=== PATIENT | female | born 1965 | race African-American/Black ===

== ENCOUNTER 2019-05-20 17:16 | Inpatient (IN) | payer OTHER ==
[2019-05-20] MEDS: ONDANSETRON 4 MG INJ IV (17:39)
[2019-05-20] MEDS: SOD CHLORIDE 0.9% 500 ML IV (17:39)
[2019-05-20] MEDS: morphine 4 MG/ML VIAL IV (17:39)
[2019-05-20 17:47] LABS: ADD MAN DIFF? NO
[2019-05-20 17:50] LABS: BASOPHIL # 0.1 10^3/ul (0.0-0.1); BASOPHILS % 0.6 % (0.0-2.0); EOSINOPHILS # 0.2 10^3/ul (0.0-0.5); EOSINOPHILS % 1.5 % (0.0-7.0); HEMATOCRIT 42.5 % (37.0-47.0); HEMOGLOBIN 13.8 g/dl (12.0-16.0); LYMPHOCYTES # 3.5 10^3/ul (0.8-2.9); LYMPHOCYTES % 31.2 % (15.0-51.0); MEAN CORPUSCULAR HEMOGLOBIN 28.2 pg (29.0-33.0); MEAN CORPUSCULAR HGB CONC 32.5 g/dl (32.0-37.0); MEAN CORPUSCULAR VOLUME 86.9 fl (82.0-101.0); MEAN PLATELET VOLUME 10.3 fl (7.4-10.4); MONOCYTE # 0.7 10^3/ul (0.3-0.9); MONOCYTES % 5.9 % (0.0-11.0); NEUTROPHIL # 6.8 10^3/ul (1.6-7.5); NEUTROPHILS % 60.4 % (39.0-77.0); PLATELET COUNT 337 10^3/UL (140-415); RED BLOOD COUNT 4.89 10^6/ul (4.20-5.40); RED CELL DISTRIBUTION WIDTH 14.5 % (11.5-14.5)
[2019-05-20 17:50] LABS: WHITE BLOOD COUNT 11.3 10^3/ul (4.8-10.8)
[2019-05-20 18:09] LABS: INR 0.89; PROTIME 12.1 Sec (11.9-14.9); PT RATIO 0.9
[2019-05-20 18:10] LABS: PARTIAL THROMBOPLASTIN TIME 27.2 Sec (23.0-35.0)
[2019-05-20 18:15] LABS: ANION GAP 14 (5-13); BLOOD UREA NITROGEN 13 mg/dl (7-20); CALCIUM 10.5 mg/dl (8.4-10.2); CARBON DIOXIDE 23 mmol/L (21-31); CHLORIDE 105 mmol/L (97-110); CREATININE 0.72 mg/dl (0.44-1.00); Estimated GFR > 60 mL/min (>60); GLUCOSE 124 mg/dl (70-220); POTASSIUM 3.9 mmol/L (3.5-5.1); SODIUM 142 mmol/L (135-144)
[2019-05-20] MEDS: HYDROmorphONE 2 MG/ML SYG IV (18:28)
[2019-05-20] MEDS ORDERED: NACL 0.9% 3 ML SYG IV (19:30)
[2019-05-20] MEDS ORDERED: BISACODYL 10 MG SUPP PR (19:30)
[2019-05-20] MEDS ORDERED: ONDANSETRON 4 MG INJ IV (19:30)
[2019-05-20] MEDS ORDERED: hydrALAzine 20 MG INJ IV (19:30)
[2019-05-20] MEDS: KETOROLAC 15 MG INJ IV (19:55)
[2019-05-20] MEDS: HYDROCODONE/APAP (5/325) TAB PO (22:24)
[2019-05-20] MEDS: NICOTINE (21 MG/24 HR) PATCH TRANSDERM (22:30)
[2019-05-20] MEDS: morphine 2 MG INJ IV (23:24)
[2019-05-21] MEDS: HYDROmorphONE 1 MG/ML SYG IV ×6 (03:41→23:05)
[2019-05-21 05:10] LABS: ADD MAN DIFF? NO
[2019-05-21 05:23] LABS: BASOPHIL # 0.1 10^3/ul (0.0-0.1); BASOPHILS % 0.5 % (0.0-2.0); EOSINOPHILS # 0.2 10^3/ul (0.0-0.5); EOSINOPHILS % 1.4 % (0.0-7.0); HEMATOCRIT 38.2 % (37.0-47.0); HEMOGLOBIN 12.4 g/dl (12.0-16.0); LYMPHOCYTES # 2.7 10^3/ul (0.8-2.9); LYMPHOCYTES % 24.5 % (15.0-51.0); MEAN CORPUSCULAR HEMOGLOBIN 28.7 pg (29.0-33.0); MEAN CORPUSCULAR HGB CONC 32.5 g/dl (32.0-37.0); MEAN CORPUSCULAR VOLUME 88.4 fl (82.0-101.0); MEAN PLATELET VOLUME 10.3 fl (7.4-10.4); MONOCYTE # 0.9 10^3/ul (0.3-0.9); MONOCYTES % 7.9 % (0.0-11.0); NEUTROPHIL # 7.2 10^3/ul (1.6-7.5); NEUTROPHILS % 65.3 % (39.0-77.0); PLATELET COUNT 280 10^3/UL (140-415); RED BLOOD COUNT 4.32 10^6/ul (4.20-5.40); RED CELL DISTRIBUTION WIDTH 14.6 % (11.5-14.5)
[2019-05-21 05:53] LABS: ALANINE AMINOTRANSFERASE 21 IU/L (13-69); ALBUMIN 4.1 g/dl (3.3-4.9); ALBUMIN/GLOBULIN RATIO 1.41; ALKALINE PHOSPHATASE 72 IU/L (42-121); ANION GAP 10 (5-13); ASPARTATE AMINO TRANSFERASE 22 IU/L (15-46); BILIRUBIN,INDIRECT 0.4 mg/dl (0-1.1); BILIRUBIN,TOTAL 0.4 mg/dl (0.2-1.3); BLOOD UREA NITROGEN 11 mg/dl (7-20); CALCIUM 9.5 mg/dl (8.4-10.2); CARBON DIOXIDE 27 mmol/L (21-31); CHLORIDE 107 mmol/L (97-110); CHOL/HDL RATIO 4.2 RATIO; CHOLESTEROL 274 mg/dl (100-200); CREATININE 0.54 mg/dl (0.44-1.00); Estimated GFR > 60 mL/min (>60); GLUCOSE 111 mg/dl (70-220); HDL CHOLESTEROL 64 mg/dl (37-92); LDL CHOLESTEROL,CALCULATED 174 mg/dl; MAGNESIUM 1.9 mg/dl (1.7-2.5); POTASSIUM 3.9 mmol/L (3.5-5.1); SODIUM 144 mmol/L (135-144); TRIGLYCERIDES 182 mg/dl (0-149)
[2019-05-21 06:13] LABS: HEMOGLOBIN A1C 5.5 % (0-5.9)
[2019-05-21] MEDS: HYDROCODONE/APAP (5/325) TAB PO (08:40)
[2019-05-21] MEDS: NICOTINE (21 MG/24 HR) PATCH TRANSDERM (08:40)
[2019-05-21] MEDS ORDERED: hydrALAzine 20 MG INJ IV (12:00)
[2019-05-21] MEDS: AMLODIPINE 5 MG TAB PO (12:01)
[2019-05-21] MEDS: ENOXAPARIN 40 MG/0.4 ML SYG SC (12:01)
[2019-05-21] MEDS: OXYCODONE/ACETAMINOPHEN (5/325) TAB PO ×2 (12:01→15:53)
[2019-05-21 12:06] LABS: FREE T4 (FREE THYROXINE) 1.18 ng/dl (0.64-1.79)
[2019-05-21] MEDS: ATORVASTATIN 10 MG TAB PO (20:11)
[2019-05-21] MEDS: traZODone 50 MG TAB PO (20:11)
[2019-05-21] MEDS: OXYCODONE/ACETAMINOPHEN (10/325) TAB PO (20:11)
[2019-05-22] MEDS: OXYCODONE/ACETAMINOPHEN (10/325) TAB PO ×4 (01:50→20:49)
[2019-05-22 05:18] LABS: ADD MAN DIFF? NO
[2019-05-22] MEDS: HYDROmorphONE 1 MG/ML SYG IV ×3 (05:19→18:45)
[2019-05-22 05:20] LABS: WHITE BLOOD COUNT 10.6 10^3/ul (4.8-10.8)
[2019-05-22 05:20] LABS: BASOPHILS % 0.4 % (0.0-2.0); EOSINOPHILS # 0.1 10^3/ul (0.0-0.5); EOSINOPHILS % 1.3 % (0.0-7.0); HEMATOCRIT 38.7 % (37.0-47.0); HEMOGLOBIN 12.4 g/dl (12.0-16.0); LYMPHOCYTES # 1.5 10^3/ul (0.8-2.9); LYMPHOCYTES % 13.8 % (15.0-51.0); MEAN CORPUSCULAR HEMOGLOBIN 28.2 pg (29.0-33.0); MEAN PLATELET VOLUME 10.4 fl (7.4-10.4); MONOCYTE # 0.9 10^3/ul (0.3-0.9); MONOCYTES % 8.2 % (0.0-11.0); NEUTROPHIL # 8.1 10^3/ul (1.6-7.5); PLATELET COUNT 261 10^3/UL (140-415); RED CELL DISTRIBUTION WIDTH 14.4 % (11.5-14.5)
[2019-05-22 05:35] LABS: ANION GAP 8 (5-13); BLOOD UREA NITROGEN 7 mg/dl (7-20); CALCIUM 9.4 mg/dl (8.4-10.2); CARBON DIOXIDE 29 mmol/L (21-31); CHLORIDE 102 mmol/L (97-110); CREATININE 0.47 mg/dl (0.44-1.00); Estimated GFR > 60 mL/min (>60); GLUCOSE 129 mg/dl (70-220); SODIUM 139 mmol/L (135-144)
[2019-05-22 06:05] LABS: POTASSIUM 3.7 mmol/L (3.5-5.1)
[2019-05-22] MEDS: AMLODIPINE 5 MG TAB PO (09:00)
[2019-05-22] MEDS: NICOTINE (21 MG/24 HR) PATCH TRANSDERM (09:45)
[2019-05-22] MEDS: ENOXAPARIN 40 MG/0.4 ML SYG SC (12:30)
[2019-05-22] MEDS: ATORVASTATIN 10 MG TAB PO (20:49)
[2019-05-23] MEDS: SOD CHLORIDE 0.9% 1,000 ML IV ×2 (00:35→21:18)
[2019-05-23] MEDS: HYDROmorphONE 1 MG/ML SYG IV ×4 (00:36→11:55)
[2019-05-23 05:18] LABS: ADD MAN DIFF? NO
[2019-05-23 05:21] LABS: BASOPHILS % 0.5 % (0.0-2.0); EOSINOPHILS # 0.2 10^3/ul (0.0-0.5); EOSINOPHILS % 2.1 % (0.0-7.0); HEMATOCRIT 36.4 % (37.0-47.0); HEMOGLOBIN 11.8 g/dl (12.0-16.0); LYMPHOCYTES # 1.8 10^3/ul (0.8-2.9); LYMPHOCYTES % 22.2 % (15.0-51.0); MEAN CORPUSCULAR HGB CONC 32.4 g/dl (32.0-37.0); MEAN CORPUSCULAR VOLUME 86.5 fl (82.0-101.0); MEAN PLATELET VOLUME 10.3 fl (7.4-10.4); MONOCYTE # 0.6 10^3/ul (0.3-0.9); MONOCYTES % 7.1 % (0.0-11.0); NEUTROPHIL # 5.5 10^3/ul (1.6-7.5); NEUTROPHILS % 67.7 % (39.0-77.0); PLATELET COUNT 252 10^3/UL (140-415); RED BLOOD COUNT 4.21 10^6/ul (4.20-5.40); RED CELL DISTRIBUTION WIDTH 14.1 % (11.5-14.5)
[2019-05-23 05:21] LABS: WHITE BLOOD COUNT 8.2 10^3/ul (4.8-10.8)
[2019-05-23 05:44] LABS: ANION GAP 11 (5-13); BLOOD UREA NITROGEN 8 mg/dl (7-20); CALCIUM 9.5 mg/dl (8.4-10.2); CARBON DIOXIDE 30 mmol/L (21-31); CHLORIDE 101 mmol/L (97-110); CREATININE 0.51 mg/dl (0.44-1.00); Estimated GFR > 60 mL/min (>60); GLUCOSE 114 mg/dl (70-220); POTASSIUM 3.5 mmol/L (3.5-5.1); SODIUM 142 mmol/L (135-144)
[2019-05-23] MEDS: ENOXAPARIN 40 MG/0.4 ML SYG SC (07:43)
[2019-05-23] MEDS: AMLODIPINE 5 MG TAB PO (08:24)
[2019-05-23] MEDS: NICOTINE (21 MG/24 HR) PATCH TRANSDERM (08:24)
[2019-05-23] MEDS: POLYMYXIN/BACITRACIN 1L IRRIG (15:08)
[2019-05-23] MEDS ORDERED: SUCCINYLCHOLINE CHLORIDE 100 MG/5 ML SYG IV (15:29)
[2019-05-23] MEDS ORDERED: ROCURONIUM 50 MG INJ (15:29)
[2019-05-23] MEDS ORDERED: PROPOFOL 20 ML (15:29)
[2019-05-23] MEDS ORDERED: CEFAZOLIN 1 GM INJ (15:29)
[2019-05-23] MEDS ORDERED: MIDAZOLAM 1 MG/ML 2 ML INJ (15:30)
[2019-05-23] MEDS ORDERED: ONDANSETRON 4 MG INJ (15:30)
[2019-05-23] MEDS ORDERED: HYDROmorphONE 1 MG/5 ML IV SYRINGE IV (17:00)
[2019-05-23] MEDS ORDERED: FENTAnyl 50 MCG/ML VIAL IV (17:00)
[2019-05-23] MEDS ORDERED: FENTAnyl 50 MCG/ML VIAL (19:25)
[2019-05-23] MEDS ORDERED: LABETALOL HCL 20MG INJ (19:31)
[2019-05-23] MEDS: ONDANSETRON 4 MG INJ IV (20:22)
[2019-05-23] MEDS: HYDROmorphONE 1 MG/5 ML IV SYRINGE IV ×2 (20:23→20:43)
[2019-05-23] MEDS: ATORVASTATIN 10 MG TAB PO (21:00)
[2019-05-23 21:32] LABS: ADD MAN DIFF? NO
[2019-05-23 21:41] LABS: BASOPHIL # 0.1 10^3/ul (0.0-0.1); BASOPHILS % 0.4 % (0.0-2.0); EOSINOPHILS % 0.1 % (0.0-7.0); HEMATOCRIT 36.1 % (37.0-47.0); HEMOGLOBIN 11.6 g/dl (12.0-16.0); LYMPHOCYTES # 0.8 10^3/ul (0.8-2.9); LYMPHOCYTES % 5.5 % (15.0-51.0); MEAN CORPUSCULAR HEMOGLOBIN 28.4 pg (29.0-33.0); MEAN CORPUSCULAR HGB CONC 32.1 g/dl (32.0-37.0); MEAN CORPUSCULAR VOLUME 88.3 fl (82.0-101.0); MEAN PLATELET VOLUME 10.3 fl (7.4-10.4); MONOCYTE # 0.7 10^3/ul (0.3-0.9); MONOCYTES % 4.5 % (0.0-11.0); NEUTROPHIL # 13.5 10^3/ul (1.6-7.5); PLATELET COUNT 252 10^3/UL (140-415); RED BLOOD COUNT 4.09 10^6/ul (4.20-5.40); RED CELL DISTRIBUTION WIDTH 13.9 % (11.5-14.5)
[2019-05-23 21:41] LABS: WHITE BLOOD COUNT 15.2 10^3/ul (4.8-10.8)
[2019-05-23 21:56] LABS: ANION GAP 11 (5-13); BLOOD UREA NITROGEN 8 mg/dl (7-20); CALCIUM 9.1 mg/dl (8.4-10.2); CARBON DIOXIDE 27 mmol/L (21-31); CHLORIDE 103 mmol/L (97-110); CREATININE 0.51 mg/dl (0.44-1.00); Estimated GFR > 60 mL/min (>60); GLUCOSE 176 mg/dl (70-220); POTASSIUM 3.7 mmol/L (3.5-5.1); SODIUM 141 mmol/L (135-144)
[2019-05-23] MEDS ORDERED: CEFAZOLIN 2 GM/50 ML (PMX) 50 ML IVPB (22:00)
[2019-05-23] MEDS: morphine 2 MG INJ IV (23:20)
[2019-05-23] MEDS: CEFAZOLIN 2 GM/50 ML (PMX) 50 ML IVPB (23:51)
[2019-05-24] MEDS: oxyCODONE 5 MG TAB PO ×5 (02:17→18:06)
[2019-05-24] MEDS: morphine 2 MG INJ IV ×4 (04:58→20:16)
[2019-05-24 05:15] LABS: ADD MAN DIFF? NO
[2019-05-24 05:23] LABS: BASOPHILS % 0.2 % (0.0-2.0); EOSINOPHILS % 0.1 % (0.0-7.0); HEMATOCRIT 33.3 % (37.0-47.0); HEMOGLOBIN 10.8 g/dl (12.0-16.0); LYMPHOCYTES # 0.8 10^3/ul (0.8-2.9); LYMPHOCYTES % 8.2 % (15.0-51.0); MEAN CORPUSCULAR HEMOGLOBIN 28.5 pg (29.0-33.0); MEAN CORPUSCULAR HGB CONC 32.4 g/dl (32.0-37.0); MEAN CORPUSCULAR VOLUME 87.9 fl (82.0-101.0); MEAN PLATELET VOLUME 10.3 fl (7.4-10.4); MONOCYTE # 0.8 10^3/ul (0.3-0.9); MONOCYTES % 8.1 % (0.0-11.0); NEUTROPHILS % 83.1 % (39.0-77.0); PLATELET COUNT 247 10^3/UL (140-415); RED BLOOD COUNT 3.79 10^6/ul (4.20-5.40); RED CELL DISTRIBUTION WIDTH 13.8 % (11.5-14.5)
[2019-05-24 05:23] LABS: WHITE BLOOD COUNT 9.6 10^3/ul (4.8-10.8)
[2019-05-24 05:37] LABS: ANION GAP 8 (5-13); BLOOD UREA NITROGEN 7 mg/dl (7-20); CALCIUM 8.8 mg/dl (8.4-10.2); CARBON DIOXIDE 26 mmol/L (21-31); CHLORIDE 105 mmol/L (97-110); CREATININE 0.46 mg/dl (0.44-1.00); Estimated GFR > 60 mL/min (>60); GLUCOSE 131 mg/dl (70-220); POTASSIUM 3.7 mmol/L (3.5-5.1); SODIUM 139 mmol/L (135-144)
[2019-05-24] MEDS: CEFAZOLIN 2 GM/50 ML (PMX) 50 ML IVPB ×2 (06:50→14:29)
[2019-05-24] MEDS: NICOTINE (21 MG/24 HR) PATCH TRANSDERM (09:12)
[2019-05-24] MEDS: AMLODIPINE 5 MG TAB PO (09:13)
[2019-05-24] MEDS: ENOXAPARIN 40 MG/0.4 ML SYG SC (09:14)
[2019-05-24] MEDS: POLYETHYLENE GLYCOL 17 GM PACKET PO (19:14)
[2019-05-24] MEDS: ATORVASTATIN 10 MG TAB PO (20:16)
[2019-05-24] MEDS: ACETAMINOPHEN 325 MG TAB PO (22:00)
[2019-05-24] MEDS: OXYCODONE/ACETAMINOPHEN (10/325) TAB PO (23:05)
[2019-05-25] MEDS ORDERED: VANCOMYCIN IV PER PHARMACY XX
[2019-05-25 00:09] LABS: LACTIC ACID 0.7 mmol/L (0.5-2.0)
[2019-05-25] MEDS: PIPER-TAZO 3.375 GM IV (PMX) 100 ML IVPB ×5 (00:21→23:26)
[2019-05-25] MEDS: VANCOMYCIN HCL 1.75 GM in SOD CHLORIDE 0.9% 500 ML IVPB (01:13)
[2019-05-25 05:21] LABS: ADD MAN DIFF? NO
[2019-05-25 05:32] LABS: BASOPHILS % 0.4 % (0.0-2.0); EOSINOPHILS # 0.2 10^3/ul (0.0-0.5); EOSINOPHILS % 1.9 % (0.0-7.0); HEMATOCRIT 30.6 % (37.0-47.0); LYMPHOCYTES # 1.8 10^3/ul (0.8-2.9); MEAN CORPUSCULAR HEMOGLOBIN 28.8 pg (29.0-33.0); MEAN CORPUSCULAR HGB CONC 32.7 g/dl (32.0-37.0); MEAN CORPUSCULAR VOLUME 88.2 fl (82.0-101.0); MEAN PLATELET VOLUME 10.4 fl (7.4-10.4); MONOCYTES % 10.1 % (0.0-11.0); NEUTROPHILS % 69.3 % (39.0-77.0); PLATELET COUNT 252 10^3/UL (140-415); RED BLOOD COUNT 3.47 10^6/ul (4.20-5.40)
[2019-05-25 05:54] LABS: LACTIC ACID 1.1 mmol/L (0.5-2.0)
[2019-05-25 06:25] LABS: ANION GAP 6 (5-13); BLOOD UREA NITROGEN 8 mg/dl (7-20); CARBON DIOXIDE 32 mmol/L (21-31); CHLORIDE 104 mmol/L (97-110); CREATININE 0.51 mg/dl (0.44-1.00); Estimated GFR > 60 mL/min (>60); GLUCOSE 113 mg/dl (70-220); POTASSIUM 3.8 mmol/L (3.5-5.1); SODIUM 142 mmol/L (135-144)
[2019-05-25] MEDS: OXYCODONE/ACETAMINOPHEN (10/325) TAB PO ×3 (08:17→16:06)
[2019-05-25] MEDS: AMLODIPINE 5 MG TAB PO (08:18)
[2019-05-25] MEDS: NICOTINE (21 MG/24 HR) PATCH TRANSDERM (08:18)
[2019-05-25] MEDS: ENOXAPARIN 40 MG/0.4 ML SYG SC (08:20)
[2019-05-25] MEDS: SOD CHLORIDE 0.9% 500 ML IV (10:57)
[2019-05-25] MEDS: HYDROmorphONE 1 MG/ML SYG IV ×2 (11:05→23:26)
[2019-05-25] MEDS: VANCOMYCIN HCL 1.25 GM in SOD CHLORIDE 0.9% 250 ML IVPB (14:24)
[2019-05-25] MEDS: oxyCODONE 5 MG TAB PO ×2 (14:35→19:18)
[2019-05-25] MEDS: ATORVASTATIN 10 MG TAB PO (20:37)
[2019-05-25] MEDS: morphine 2 MG INJ IV (22:10)
[2019-05-26] MEDS: VANCOMYCIN HCL 1.25 GM in SOD CHLORIDE 0.9% 250 ML IVPB (01:13)
[2019-05-26] MEDS: BISACODYL (EC) 5 MG TAB PO ×2 (01:14→09:00)
[2019-05-26] MEDS: OXYCODONE/ACETAMINOPHEN (10/325) TAB PO ×4 (01:14→19:52)
[2019-05-26 05:29] LABS: ADD MAN DIFF? NO
[2019-05-26 05:39] LABS: BASOPHILS % 0.3 % (0.0-2.0); EOSINOPHILS # 0.2 10^3/ul (0.0-0.5); EOSINOPHILS % 2.6 % (0.0-7.0); HEMOGLOBIN 9.2 g/dl (12.0-16.0); LYMPHOCYTES # 1.5 10^3/ul (0.8-2.9); LYMPHOCYTES % 16.2 % (15.0-51.0); MEAN CORPUSCULAR HEMOGLOBIN 28.8 pg (29.0-33.0); MEAN CORPUSCULAR HGB CONC 32.9 g/dl (32.0-37.0); MEAN CORPUSCULAR VOLUME 87.5 fl (82.0-101.0); MEAN PLATELET VOLUME 10.5 fl (7.4-10.4); MONOCYTE # 0.7 10^3/ul (0.3-0.9); NEUTROPHIL # 6.7 10^3/ul (1.6-7.5); NEUTROPHILS % 72.6 % (39.0-77.0); PLATELET COUNT 252 10^3/UL (140-415); RED CELL DISTRIBUTION WIDTH 13.6 % (11.5-14.5)
[2019-05-26 05:39] LABS: WHITE BLOOD COUNT 9.2 10^3/ul (4.8-10.8)
[2019-05-26 06:16] LABS: ANION GAP 7 (5-13); BLOOD UREA NITROGEN 6 mg/dl (7-20); CALCIUM 8.8 mg/dl (8.4-10.2); CARBON DIOXIDE 29 mmol/L (21-31); CHLORIDE 105 mmol/L (97-110); CREATININE 0.44 mg/dl (0.44-1.00); Estimated GFR > 60 mL/min (>60); GLUCOSE 116 mg/dl (70-220); POTASSIUM 3.7 mmol/L (3.5-5.1); SODIUM 141 mmol/L (135-144)
[2019-05-26] MEDS: PIPER-TAZO 3.375 GM IV (PMX) 100 ML IVPB (07:00)
[2019-05-26] MEDS: NICOTINE (21 MG/24 HR) PATCH TRANSDERM (09:20)
[2019-05-26] MEDS: AMLODIPINE 5 MG TAB PO (09:20)
[2019-05-26 09:24] LABS: ADD UMIC YES; UR AMORPHOUS CRYSTAL FEW /HPF (NONE SEEN); UR ASCORBIC ACID NEGATIVE (NEGATIVE); UR BACTERIA FEW /HPF (NONE SEEN); UR BILIRUBIN (Dip) NEGATIVE (NEGATIVE); UR BLOOD (Dip) NEGATIVE (NEGATIVE); UR CLARITY CLOUDY (CLEAR); UR COLOR AMBER (YELLOW); UR GLUCOSE (Dip) NEGATIVE (NEGATIVE); UR KETONES (Dip) 1+ mg/dL (NEGATIVE); UR LEUKOCYTE ESTERASE (Dip) NEGATIVE Leu/ul (NEGATIVE); UR NITRITE (Dip) NEGATIVE (NEGATIVE); UR RBC 8 /HPF (0-5); UR SPECIFIC GRAVITY (Dip) 1.023 (1.003-1.030); UR SQUAMOUS EPITHELIAL CELL FEW /HPF (FEW); UR TOTAL PROTEIN (Dip) NEGATIVE (NEGATIVE); UR UROBILINOGEN (Dip) 2+ mg/dL (NEGATIVE); UR WBC 4 /HPF (0-5)
[2019-05-26] MEDS: ENOXAPARIN 40 MG/0.4 ML SYG SC (09:28)
[2019-05-26] MEDS ORDERED: KETOROLAC 15 MG INJ IV (09:30)
[2019-05-26] MEDS: oxyCODONE 5 MG TAB PO ×2 (13:18→18:23)
[2019-05-26] MEDS: ATORVASTATIN 10 MG TAB PO (19:52)
[2019-05-26] MEDS: traZODone 50 MG TAB PO (22:17)
[2019-05-27] MEDS: OXYCODONE/ACETAMINOPHEN (10/325) TAB PO ×3 (08:34→21:04)
[2019-05-27] MEDS: BISACODYL (EC) 5 MG TAB PO (08:35)
[2019-05-27] MEDS: AMLODIPINE 5 MG TAB PO (08:36)
[2019-05-27] MEDS: ENOXAPARIN 40 MG/0.4 ML SYG SC (08:42)
[2019-05-27] MEDS: NICOTINE (21 MG/24 HR) PATCH TRANSDERM (08:46)
[2019-05-27] MEDS: oxyCODONE 5 MG TAB PO ×2 (11:20→23:54)
[2019-05-27] MEDS ORDERED: ALPRAZOLAM 0.5 MG TAB PO (20:00)
[2019-05-27] MEDS: FISH OIL 1,000 MG CAP PO (21:00)
[2019-05-27] MEDS: TIOTROPIUM 18 MCG CAPSULE INHA DEV INH (21:55)
[2019-05-27] MEDS: MONTELUKAST 10 MG TAB PO (21:55)
[2019-05-27] MEDS: FUROSEMIDE 20 MG TAB PO (22:00)
[2019-05-28] MEDS: NACL 0.9% 3 ML SYG IV (01:04)
[2019-05-28] MEDS: OXYCODONE/ACETAMINOPHEN (10/325) TAB PO ×3 (01:49→09:47)
[2019-05-28 06:25] LABS: ANION GAP 8 (5-13); BLOOD UREA NITROGEN 6 mg/dl (7-20); CALCIUM 9.3 mg/dl (8.4-10.2); CARBON DIOXIDE 28 mmol/L (21-31); CHLORIDE 105 mmol/L (97-110); CREATININE 0.46 mg/dl (0.44-1.00); Estimated GFR > 60 mL/min (>60); GLUCOSE 116 mg/dl (70-220); POTASSIUM 3.8 mmol/L (3.5-5.1); SODIUM 141 mmol/L (135-144)
[2019-05-28] MEDS: FISH OIL 1,000 MG CAP PO ×2 (08:34→20:51)
[2019-05-28] MEDS: BISACODYL (EC) 5 MG TAB PO (08:34)
[2019-05-28] MEDS: FUROSEMIDE 40 MG TAB PO ×2 (08:37→11:40)
[2019-05-28] MEDS: AMLODIPINE 5 MG TAB PO (08:37)
[2019-05-28] MEDS: OLANZAPINE 5 MG TAB PO (08:38)
[2019-05-28] MEDS: oxyCODONE 5 MG TAB PO (08:38)
[2019-05-28] MEDS: FLUOXETINE 20 MG CAP PO (08:38)
[2019-05-28] MEDS: ENOXAPARIN 40 MG/0.4 ML SYG SC (08:43)
[2019-05-28] MEDS: NICOTINE (21 MG/24 HR) PATCH TRANSDERM (08:47)
[2019-05-28] MEDS: TIOTROPIUM 18 MCG CAPSULE INHA DEV INH (08:47)
[2019-05-28] MEDS ORDERED: FLUOXETINE HCL 20 MG PO (09:00)
[2019-05-28] MEDS: HYDROmorphONE 1 MG/ML SYG IV (09:22)
[2019-05-28] MEDS: traMADol 50 MG TAB PO ×3 (12:54→20:50)
[2019-05-28] MEDS: MONTELUKAST 10 MG TAB PO (20:50)
[2019-05-28] MEDS: ALPRAZOLAM 1 MG TAB PO (20:50)
[2019-05-29] MEDS: HYDROCODONE/APAP (5/325) TAB PO (06:58)
[2019-05-29] MEDS: TIOTROPIUM 18 MCG CAPSULE INHA DEV INH (08:58)
[2019-05-29] MEDS: FISH OIL 1,000 MG CAP PO (08:59)
[2019-05-29] MEDS: BISACODYL (EC) 5 MG TAB PO (08:59)
[2019-05-29] MEDS: FLUOXETINE 20 MG CAP PO (09:00)
[2019-05-29] MEDS: OLANZAPINE 5 MG TAB PO (09:00)
[2019-05-29] MEDS: AMLODIPINE 5 MG TAB PO (09:00)
[2019-05-29] MEDS: FUROSEMIDE 40 MG TAB PO (09:01)
[2019-05-29] MEDS: traMADol 50 MG TAB PO (09:01)
[2019-05-29] MEDS: NICOTINE (21 MG/24 HR) PATCH TRANSDERM (09:02)
[2019-05-29] MEDS: ENOXAPARIN 40 MG/0.4 ML SYG SC (09:24)
[2019-05-29] MEDS ORDERED: HYDROCODONE/APAP (5/325) TAB PO (10:00)
[2019-05-29] MEDS: ASPIRIN 81 MG TAB PO (10:49)
[2019-05-29] MEDS: HYDROCODONE/APAP (10/325) TAB PO (11:41)
[2019-05-29] MEDS ORDERED: PANTOPRAZOLE (EC) 40 MG TAB PO (18:00)
== END 2019-05-29 12:15 | disposition home or self-care (01) | DRG 493 ==
LOC: E/R 17:16 → MS1 18:27
PROC: 0QSG04Z Reposition Right Tibia with Internal Fixation Device, Open Approach (ICD-10-PCS; principal; 2019-05-23 15:00)
PROC: 0QUG0JZ Supplement Right Tibia with Synthetic Substitute, Open Approach (ICD-10-PCS; 2019-05-23 15:00)
DX: S82.251A Displaced comminuted fracture of shaft of right tibia, initial encounter for closed fracture (principal); J98.11 Atelectasis; J95.89 Other postprocedural complications and disorders of respiratory system, not elsewhere classified; E02 Subclinical iodine-deficiency hypothyroidism; I10 Essential (primary) hypertension; J44.9 Chronic obstructive pulmonary disease, unspecified; E78.5 Hyperlipidemia, unspecified; E66.9 Obesity, unspecified; Z68.33 Body mass index [BMI] 33.0-33.9, adult; D64.9 Anemia, unspecified; F41.9 Anxiety disorder, unspecified; R50.9 Fever, unspecified
CPT/HCPCS: 36415; 71045; 73560; 73562; 73590; 73700; 80048; 80053; 80061; 81001; 83036; 83605; 83735; 84439; 84443; 84703; 85025; 85610; 85730; 87040-91; 87086; 93005; 93306; 93971; 96374; 96375; 97110; 97116; 97162; 97530; 99285-25

== ENCOUNTER 2019-06-20 14:53 | Emergency (ER) | payer OTHER ==
[2019-06-20] MEDS: morphine 4 MG/ML VIAL IM (16:31)
[2019-06-20] MEDS: ONDANSETRON (ODT) 4 MG TAB ODT (16:31)
== END 2019-06-20 18:50 | disposition home or self-care (01) ==
LOC: E/R 18:50
DX: S83.91XA Sprain of unspecified site of right knee, initial encounter (principal); I10 Essential (primary) hypertension; J44.9 Chronic obstructive pulmonary disease, unspecified; F17.210 Nicotine dependence, cigarettes, uncomplicated; W05.0XXA Fall from non-moving wheelchair, initial encounter; Y92.9 Unspecified place or not applicable; Z91.040 Latex allergy status; Z79.82 Long term (current) use of aspirin
CPT/HCPCS: 73562; 73590; 96372; 99284-25